=== PATIENT | female | born 1950 | race Caucasian/White ===

== ENCOUNTER → 2016-12-22 | Outpatient (CLI) | payer OTHER ==
[~2016-12-22] MED LIST: ACET-1487 PO; ATOR-26 PO; CHOL100010 PO; NYSTCRE11; PRM625 PO
--- NOTE | 2016-12-22 10:30 | DIAGNOSTIC IMAGING REPORT ---
LUMBAR SPINE 5 VIEWS CLINICAL HISTORY: Chronic low back pain. FINDINGS: Five views of the lumbar spine are compared to a study dated 06/11/2014. The skeletal structures are osteopenic. There is no radiographic evidence of fracture or malalignment. Vertebral body height is maintained throughout the lumbar spine. Alignment is preserved. There is straightening of the lumbar lordosis. The transverse and spinous processes appear intact. There is no evidence of spondylolysis. Facet arthropathy is seen in the mid to lower lumbar region. Advanced degenerative disc space narrowing with endplate sclerosis is seen at L1-L2 and L2-L3. Moderate narrowing is seen at the remaining lumbar levels. Anterior osteophytes are seen throughout. The visualized bony pelvis appears intact. Numerous pelvic phleboliths are observed. There is a nonobstructed abdominal bowel gas pattern. IMPRESSION: 1. No acute bony abnormality is seen involving the lumbosacral spine. 2. Osteopenia and lumbosacral spondylosis as above. This is similar in appearance to the 06/11/2014 examination. Dictated: 12/22/2016 9:35 AM Transcribed: 12/22/2016 10:30 AM [facility] Electronically signed by: Dean Mullins M.D. 12/22/2016 10:32 AM Dictated Date/Time: 12/22/2016 9:35 AM
== END | disposition home or self-care (01) ==
LOC: C.RADPV 09:12
PROVIDERS: ATTEND Family Medicine
DX: M54.5 Low back pain (principal); M85.80 Other specified disorders of bone density and structure, unspecified site

== ENCOUNTER → 2017-07-02 | Outpatient (CLI) | payer OTHER ==
[2017-07-02 12:56] LABS: ALT/SGPT 28 U/L (12-78); BLOOD UREA NITROGEN 11 mg/dl (7-18); BUN/CREATININE RATIO 16.1 (10-20); CALCIUM 8.5 mg/dl (8.5-10.1); CARBON DIOXIDE 27 mmol/L (21-32); CHLORIDE 107 mmol/L (98-107); CHOLESTEROL 282 mg/dl (0-200); GLUCOSE 94 mg/dl (70-99); POTASSIUM 4.3 mmol/L (3.5-5.1); SODIUM 139 mmol/L (136-145)
[2017-07-02 12:59] LABS: ALB/GLOB RATIO 1.1 (0.9-2); ALKALINE PHOSPHATASE 77 U/L (45-117); AST/SGOT 20 U/L (15-37); CHOLESTEROL/HDL RATIO 4.5; HDL CHOLESTEROL 62 mg/dl; LDL CHOLESTEROL CALCULATED 202 mg/dl; TRIGLYCERIDES 88 mg/dl (0-150); VERY LOW DENSITY LIPOPROT CALC 18 mg/dl
== END | disposition home or self-care (01) ==
LOC: C.LABPVFM 08:50
PROVIDERS: ATTEND Family Medicine
DX: E55.9 Vitamin D deficiency, unspecified (principal); K21.9 Gastro-esophageal reflux disease without esophagitis; E78.5 Hyperlipidemia, unspecified; Z11.59 Encounter for screening for other viral diseases

== ENCOUNTER → 2017-08-07 | Outpatient (CLI) | payer OTHER | END | disposition home or self-care (01) | LOC: C.MAMM 10:03 | PROVIDERS: ATTEND Family Medicine | DX: M85.851 Other specified disorders of bone density and structure, right thigh (principal); M85.852 Other specified disorders of bone density and structure, left thigh ==

== ENCOUNTER → 2017-08-20 | Outpatient (CLI) | payer OTHER ==
--- NOTE | 2017-08-21 07:34 | MAMMOGRAPHY REPORT ---
BILATERAL DIGITAL SCREENING MAMMOGRAM WITH CAD: 08/20/2017 CLINICAL HISTORY: Routine screening. Patient has no complaints. TECHNIQUE: Bilateral CC and MLO views were obtained. Current study was also evaluated with a Compute r Aided Detection (CAD) system. COMPARISON: Comparison is made to exams dated: 08/17/2016 mammogram, 08/16/2015 mammogram, 4 mammogram, 08/13/2013 mammogram, 08/09/2011 mammogram, and 08/05/2010 mammogram - [facility]. BREAST COMPOSITION: There are scattered areas of fibroglandular density in both breasts. FINDINGS: There is a possible area of architectural distortion in the middle one third of the left b reast, 3.5 cm distal to the nipple on the MLO view, for which additional spot compression tomosynthes is views and possible ultrasound are recommended. There is a stable benign-appearing grouping of punctate calcifications in the retroareolar posterior left breast. No other suspicious mass, architectural distortion or cluster of microcalcifications is seen. IMPRESSION: ACR BI-RADS CATEGORY 0: INCOMPLETE EVALUATION: NEED ADDITIONAL IMAGING EVALUATION The possible area of architectural distortion in the left breast needs additional evaluation. The patient will be called to schedule an appointment. Approximately 10% of breast cancers are not detected with mammography. A negative mammographic report should not delay biopsy if a clinically suggestive mass is present. Ale Naylor M.D. ay/:08/20/2017 15:25:07 Dock Hand: Rehana PISANO)(Thu), [facility] letter sent: Addl Imaging 0 BI-RADS Code: ACR BI-RADS Category 0: Incomplete Evaluation: Need Additional Imaging Evaluation
== END | disposition home or self-care (01) ==
LOC: C.MAMM 08:45
PROVIDERS: ATTEND Family Medicine
DX: Z12.31 Encounter for screening mammogram for malignant neoplasm of breast (principal); R92.8 Other abnormal and inconclusive findings on diagnostic imaging of breast

== ENCOUNTER → 2018-03-19 | Day surgery (SDC) | payer OTHER ==
[2018-03-11 10:38] VITALS: Ht 165.1 cm; Wt 71.8 kg
[~2018-03-19] VITALS: Ht 165.1 cm; Wt 71.8 kg
[~2018-03-19] MED LIST changes: -ACET-1487 PO; -ATOR-26 PO; +ATOR-54 PO; +ATROPINE SULFATE 0.1 MG/ML 5ML SYR IV PRN; -CHOL100010 PO; +CHOL2000 PO; +EpHEDrine SULFATE INJ 50 MG/ML AMP IV PRN; +FENTANYL CITRATE INJ 50 MCG/1 ML 2 ML VIAL ONE; +GLYCOPYRROLATE INJ 0.2 MG/ML VIAL ONE; +LIDOCAINE HCL 2% 2 ML VIAL (20MG/ML) ONE; +MIDAZOLAM HCL 1 MG/ML 2ML VIAL ONE; -NYSTCRE11; +ONDANSETRON INJ 2 MG/ML 2 ML VIAL ONE; +PRLSR20 PO; -PRM625 PO; +PROPOFOL IV EMULSION 10 MG/ML 20 ML VIAL ONE
--- NOTE | 2018-03-19 12:17 | Endo History and Physical ---
History & Physical Date of Service: March 19, 2018. Chief Complaint: reflux, Family history of colon cancer Referring Physician: Dr. Perry History of Present Illness 67 yo CF who presents for EGD secondary to GERD and Colonoscopy secondary to family history of colon cancer in her mother. Past Medical History High Cholesterol Past Surgical History Hx Cardiac Surgery: No Hx Internal Defibrillator: No Hx Pacemaker: No Hx Abdominal Surgery: Yes (HYSTER) Hx of Implantable Prosthesis: No Hx Cancer Surgery: No Hx Thoracic Surgery: No Hx Orthopedic: Yes (R HAND RING FINGER FRACTURE REPAIR) Hx Urinary Tract Surgery: No Family History Colon CA Social History Smoking Status: Never Smoker Hx Substance Use: No Hx Alcohol Use: Yes (MINIMAL) Allergies Coded Allergies: No Known Allergies (Unverified , 03/19/18) Current Medications Reported Home Medications Medications Dose Route/Sig Max Daily Dose Days Date Category Vitamin D3 (Cholecalciferol) 2,000 Unit Cap 1 Cap PO DAILY 30 03/11/18 Reported Prilosec (Omeprazole) 20 Mg Capcr 20 Mg PO DAILY 03/11/18 Reported Lipitor (Atorvastatin) 20 Mg Tab 1 Tab PO DAILY 90 03/11/18 Reported Vital Signs Weight (Kilograms): 71.82 Height (Feet): 5 Height (Inches): 5 Date Time Temp Pulse Resp B/P (MAP) Pulse Ox O2 Delivery O2 Flow Rate FiO2 03/19/18 11:43 36.7 63 20 129/79 (96) 95 Room Air Physical Exam General Appearance: WD/WN, no apparent distress Respiratory/Chest: Auscultation: breath sounds normal Cardiovascular: Heart Auscultation: RRR Abdomen: Bowel Sounds: normal Inspection & Palpation: soft, non-distended, no tenderness, guarding & rebound Assessment and Plan Assessment: 67 yo CF who presents for EGD secondary to GERD and Colonoscopy secondary to family history of colon cancer in her mother. Plan: Proceed with EGD and colonoscopy.
--- NOTE | 2018-03-19 13:03 | GI REPORT ---
Patient Name: Aurelia Cr Procedure Date: 03/19/2018 12:01 PM Date of : 1950 Admit Type: Outpatient Age: 67 Gender: Female Attending MD: Melo Ruiz DO Procedure: Colonoscopy Providers: Melo Ruiz DO Referring MD: Eddie Perry Indications: Family history of colon cancer in a first-degree relative Medicines: Monitored Anesthesia Care Complications: No immediate complications. Estimated Blood Loss: Estimated blood loss: none. Procedure: Pre-Anesthesia Assessment: - Prior to the procedure, a History and Physical was performed, and patient medications and allergies were reviewed. The patient's tolerance of previous anesthesia was also reviewed. The risks and benefits of the procedure and the sedation options and risks were discussed with the patient. All questions were answered, and informed consent was obtained. Prior Anticoagulants: The patient has taken no previous anticoagulant or antiplatelet agents. ASA Grade Assessment: II - A patient with mild systemic disease. After reviewing the risks and benefits, the patient was deemed in satisfactory condition to undergo the procedure. After I obtained informed consent, the scope was passed under direct vision. Throughout the procedure, the patient's blood pressure, pulse, and oxygen saturations were monitored continuously. The scope was introduced through the anus and advanced to the terminal ileum. The colonoscopy was performed without difficulty. The patient tolerated the procedure well. The quality of the bowel preparation was good. The terminal ileum, ileocecal valve, appendiceal orifice, and rectum were photographed. Findings: The perianal and digital rectal examinations were normal. A 8 mm polyp was found in the ascending colon. The polyp was flat. The polyp was removed with a cold snare. Resection and retrieval were complete. To prevent bleeding after the polypectomy, one hemostatic clip was successfully placed. There was no bleeding at the end of the procedure. Non-bleeding internal hemorrhoids were found during retroflexion. The hemorrhoids were small. Impression: - One 8 mm polyp in the ascending colon, removed with a cold snare. Resected and retrieved. Clip was placed. - Non-bleeding internal hemorrhoids. Recommendation: - Resume previous diet. - Continue present medications. - Repeat colonoscopy for surveillance based on pathology results. - Return to primary care physician as previously scheduled. Melo Ruiz DO 03/19/2018 1:03:15 PM This report has been signed electronically. Note Initiated On: 03/19/2018 12:01 PM Number of Addenda: 0 I attest to the content of the Intraoperative Record and orders documented therein, exceptions below {[id number]}
--- NOTE | 2018-03-19 13:06 | GI REPORT ---
Patient Name: Aurelia Cr Procedure Date: 03/19/2018 12:00 PM Date of : 1950 Admit Type: Outpatient Age: 67 Gender: Female Attending MD: Melo Ruiz DO Procedure: Upper GI endoscopy Providers: Melo Ruiz DO Referring MD: Eddie Perry Indications: Gastro-esophageal reflux disease Medicines: Monitored Anesthesia Care Complications: No immediate complications. Estimated Blood Loss: Estimated blood loss: none. Procedure: Pre-Anesthesia Assessment: - Prior to the procedure, a History and Physical was performed, and patient medications and allergies were reviewed. The patient's tolerance of previous anesthesia was also reviewed. The risks and benefits of the procedure and the sedation options and risks were discussed with the patient. All questions were answered, and informed consent was obtained. Prior Anticoagulants: The patient has taken no previous anticoagulant or antiplatelet agents. ASA Grade Assessment: II - A patient with mild systemic disease. After reviewing the risks and benefits, the patient was deemed in satisfactory condition to undergo the procedure. After obtaining informed consent, the endoscope was passed under direct vision. Throughout the procedure, the patient's blood pressure, pulse, and oxygen saturations were monitored continuously. The scope was introduced through the mouth, and advanced to the second part of duodenum. The upper GI endoscopy was accomplished without difficulty. The patient tolerated the procedure well. Findings: The esophagus was normal. The entire examined stomach was normal. Localized mild inflammation characterized by erythema was found in the duodenal bulb and in the first portion of the duodenum. Biopsies were taken with a cold forceps for histology. Impression: - Normal esophagus. - Normal stomach. - Duodenitis. Biopsied. Recommendation: - Resume previous diet. - Continue present medications. - Await pathology results. - Return to primary care physician as previously scheduled. Melo Ruiz DO 03/19/2018 1:05:54 PM This report has been signed electronically. Note Initiated On: 03/19/2018 12:00 PM Number of Addenda: 0 I attest to the content of the Intraoperative Record and orders documented therein, exceptions below {[id number]}
--- NOTE | 2018-03-19 13:18 | Anesthesiology Progress Note ---
Anesthesia Post Op Note Date & Time March 19, 2018 at 13:18 Vital Signs Pain Intensity: 0 Vital Signs Past 12 Hours Date Time Temp Pulse Resp B/P (MAP) Pulse Ox O2 Delivery O2 Flow Rate FiO2 03/19/18 13:05 36 72 16 107/63 (78) 99 Room Air 03/19/18 11:43 36.7 63 20 129/79 (96) 95 Room Air Notes Mental Status: alert / awake / arousable, participated in evaluation Pt Amnestic to Procedure: Yes Nausea / Vomiting: adequately controlled Pain: adequately controlled Airway Patency, RR, SpO2: stable & adequate BP & HR: stable & adequate Hydration State: stable & adequate Anesthetic Complications: no major complications apparent
--- NOTE | 2018-03-19 13:29 | Discharge Instructions ---
Endoscopy Patient Instructions Date / Procedure(s) Performed March 19, 2018. Colonoscopy, EGD Allergy Information Coded Allergies: No Known Allergies (Unverified , 03/19/18) Discharge Date / Findings March 19, 2018. EGD: Duodenitis s/p biopsies Colonoscopy: Colon polyp, Internal hemorrhoids Medication Instructions OK to resume all medications today as prescribed Reported Home Medications Medications Dose Route/Sig Max Daily Dose Days Date Category Vitamin D3 (Cholecalciferol) 2,000 Unit Cap 1 Cap PO DAILY 30 03/11/18 Reported Prilosec (Omeprazole) 20 Mg Capcr 20 Mg PO DAILY 03/11/18 Reported Lipitor (Atorvastatin) 20 Mg Tab 1 Tab PO DAILY 90 03/11/18 Reported Provider Instructions Activity Restrictions - No exercising or heavy lifting for 24 hours. - Do not drink alcohol the day of the procedure. - Do not drive a car or operate machinery until the day after the procedure. - Do not make any important decisions or sign important papers in 24 hours after the procedure. Following Day: - Return to full activity which may include returning to work/school. Diet Start your diet with liquids and light foods (jello, soup, juice, toast). Then eat your usual diet if not nauseated. Treatment For Common After Affects For mild abdominal pain, bloating, or excessive gas: - Rest - Eat lightly - Lie on right side Follow-Up Information Follow-up with Dr. Perry as scheduled Anesthesia Information What You Should Know You have had a procedure that required some medicine to reduce anxiety and discomfort. This treatment is called moderate sedation. After receiving the treatment, you may be sleepy, but you will be able to breathe on your own. The effects of the treatment may last for several hours. Follow these instructions along with Activity/Diet recommendations noted above: * Do NOT do anything where dizziness or clumsiness would be dangerous. * Rest quietly at home today, then you can be up and about tomorrow. * Have a responsible person stay with you the rest of today. * You may have had an I.V. today. If so, you may take the dressing off later today. Recommendations Call your doctor if: * Trouble breathing * Continuous vomiting for more than 24 hours * Temperature above 101 degrees * Severe abdominal pain or bloating * Pain not relieved by pain medicine ordered * There is increased drainage or redness from any incision * A large amount of rectal bleeding greater than 2-3 tablespoons. (If you had a polyp/s removed or have hemorrhoids, a small amount of blood - from the rectum is to be expected.) * You have any unanswered questions or concerns. IN THE EVENT OF A SERIOUS EMERGENCY, GO TO THE NEAREST EMERGENCY ROOM Your discharge instructions were prepared by provider Melo Ruiz. Patient Instructions Signature Page Aurelia Cr Patient (or Guardian) Signature/Date: I have read and understand the instructions given to me by my caregivers. Caregiver/RN/Doctor Signature/Date: The above-named patient and/or guardian has received patient instructions on this date. + Original Patient Signature Page (only) stays with chart. Please make copy for patient.
[2018-03-19 13:35] VITALS: BP 127/79; PULSE 70; O2SAT 99
== END | disposition home or self-care (01) ==
LOC: C.GI 10:38
PROVIDERS: ATTEND Internal Medicine
DX: K21.9 Gastro-esophageal reflux disease without esophagitis (principal); K29.80 Duodenitis without bleeding; Z80.0 Family history of malignant neoplasm of digestive organs; E78.00 Pure hypercholesterolemia, unspecified; Z90.710 Acquired absence of both cervix and uterus; E78.5 Hyperlipidemia, unspecified